=== PATIENT | female | born 1950 | race Caucasian/White ===

== ENCOUNTER → 2016-06-21 | Outpatient (CLI) | payer BC ==
--- NOTE | 2016-06-21 16:19 | REP ---
Clinical: Thyroid nodule. Technique: Real time pierre scale and color evaluation using linear high frequency and curved array transducer. Findings: Thyroid gland is mildly decreased in size demonstrating normal contour and parenchymal echogenicity. Right lobe measures 4.4 x 1.5 x 1.2 cm and includes and 8 mm solid nonspecific nodule. Left lobe measures 2.9 x 0.7 x 1.0 cm and includes 5 mm solid nonspecific nodule. Impression: Small bilateral nonspecific solid thyroid nodules.
--- NOTE | 2016-06-24 08:20 | DEXA ---
AP SPINE L1 - L4 1.047 -1.2 0.2 LT FEMUR TOTAL 0.942 -0.5 0.5 RT FEMUR TOTAL 0.950 -0.5 0.6 TOTAL BODY TOTAL OTHER DUAL FEMUR FRAX* ASSESSMENT Risk factors: None. 10 year probability of fracture Major osteoporotic fracture 8.7 % Hip fracture 0.9 % COMMENTS: There is low bone density of the spine and hips. The density of the left hip has decreased 1.9% since 02/21/2013. The density of the right hip has decreased 0.8% since 02/21/2013. The density of the spine has decreased 11.0% since the initial exam on 2001. The spine density has increased 2.8% since the most recent exam on 02/21/2013. FOLLOW-UP: Recommendation for the next bone density exam: 2 years. SILVANO
== END ==
LOC: M WHC 15:01
PROVIDERS: ATTEND Internal Medicine Endocrinology, Diabetes & Metabolism
DX: E04.1 Nontoxic single thyroid nodule (principal)

== ENCOUNTER → 2016-09-20 | Outpatient (CLI) | payer OTHER, BC | LOC: M WUC 18:47 | PROVIDERS: ATTEND Family Medicine | DX: Z11.1 Encounter for screening for respiratory tuberculosis (principal) ==

== ENCOUNTER → 2016-12-28 | Outpatient (CLI) | payer BC, OTHER ==
[~2016-12-28] MED LIST: METHACHOLINE KIT (J7674) INH
== END ==
LOC: M CARPUL 08:00
DX: R05 Cough (principal); Z53.9 Procedure and treatment not carried out, unspecified reason
CPT/HCPCS: J7674

== ENCOUNTER → 2017-01-28 | Outpatient (CLI) | payer BC, OTHER ==
[2017-01-28 21:17] LABS: INR 1.01
[2017-01-28 21:21] LABS: ALBUMIN 3.8 GM/DL (3.2-5.2); ALKALINE PHOSPHATASE 183 U/L (45-117); ALT/SGPT 37 U/L (12-78); AST/SGOT 25 U/L (7-37); BILIRUBIN,DIRECT < 0.1 MG/DL (0.0-0.2); BILIRUBIN,TOTAL 0.3 MG/DL (0.2-1.0); FERRITIN 185 NG/ML (8-252); GAMMA GLUTAMYLTRANSPEPTIDASE 26 U/L (5-55); PERCENT SATURATION 23.3 % (13.2-45.0); TOTAL IRON BINDING CAPACITY 335 UG/DL (250-450); TOTAL PROTEIN 7.6 GM/DL (6.4-8.2)
[2017-01-29 10:05] LABS: LABILE ALKPHOS 170 U/L; STABLE ALKPHOS 13 U/L
[2017-02-02 00:06] LABS: ALPHA 1 ANTITRYPSIN 129 mg/dL (90-200); TISSUE TRANSGLUTAMINASE IgG 6 U/mL (0-5)
[2017-02-02 10:12] LABS: HEPATITIS B SURFACE ANTIBODY NEGATIVE (POSITIVE)
[2017-02-02 11:16] LABS: ALBUMIN 4.36 GM/DL (3.29-5.55); ALBUMIN % 57.4 % (55.8-66.1); GAMMA GLOBULIN % 15.8 % (11.1-18.8)
== END ==
LOC: M WUC 17:20
PROVIDERS: ATTEND Internal Medicine Gastroenterology
DX: R10.12 Left upper quadrant pain (principal); K21.9 Gastro-esophageal reflux disease without esophagitis; R13.10 Dysphagia, unspecified; R94.5 Abnormal results of liver function studies

== ENCOUNTER → 2017-09-08 | Outpatient (CLI) | payer BC, MEDICARE | LOC: M RAD 08:10 | DX: R13.10 Dysphagia, unspecified (principal); K21.9 Gastro-esophageal reflux disease without esophagitis; R05 Cough; R94.5 Abnormal results of liver function studies; R19.7 Diarrhea, unspecified; K76.0 Fatty (change of) liver, not elsewhere classified; K76.89 Other specified diseases of liver | CPT/HCPCS: 76705 ==

== ENCOUNTER → 2017-09-27 | Outpatient (CLI) | payer BC, MEDICARE ==
[2017-09-30 08:06] LABS: QUANTIFERON GOLD TB Negative (Negative); TB Test (QFT) Antigen 0.13 IU/mL (.); TB Test (QFT) Antigen Minus Ni 0.08 IU/mL (.); TB Test (QFT) Mitogen 9.26 IU/mL (.); TB Test (QFT) Nil 0.05 IU/mL (.)
== END ==
LOC: M WUC 17:08
DX: Z11.1 Encounter for screening for respiratory tuberculosis (principal)
CPT/HCPCS: 36415

== ENCOUNTER → 2017-10-10 | Outpatient (REF) | payer MEDICARE, BC | LOC: M LAB REF 09:24 | DX: R13.0 Aphagia (principal); K21.9 Gastro-esophageal reflux disease without esophagitis; R05 Cough; R94.5 Abnormal results of liver function studies; R19.7 Diarrhea, unspecified | CPT/HCPCS: 83630 ==

== ENCOUNTER → 2017-10-23 | Outpatient (CLI) | payer BC, MEDICARE ==
[2017-10-23 18:12] LABS: BASO # 0.1 10^3/uL (0.0-0.2); EOS # 0.1 10^3/uL (0.0-0.50); HEMATOCRIT 42.5 % (36.0-47.0); HEMOGLOBIN 14.4 g/dl (12.0-15.5); IMMATURE GRANULOCYTE % 0.3 % (0-3.0); LYMPH # 2.2 10^3/uL (1.5-4.5); LYMPH % 36.9 % (24.0-44.0); MEAN CORPUSCULAR HEMOGLOBIN 30.2 pg (27.0-33.0); MEAN CORPUSCULAR HGB CONC 33.9 g/dl (32.0-36.5); MEAN CORPUSCULAR VOLUME 89.1 fl (80.0-96.0); MONO # 0.4 10^3/uL (0.0-0.8); MONO % 6.4 % (0.0-5.0); NEUTROPHILS # 3.3 10^3/uL (1.8-7.7); NEUTROPHILS % 54.4 % (36.0-66.0); PLATELET COUNT, AUTOMATED 285 10^3/uL (150-450); RED BLOOD COUNT 4.77 10^6/uL (4.00-5.40); RED CELL DISTRIBUTION WIDTH 11.9 % (11.5-14.5)
[2017-10-23 18:20] LABS: APPEARANCE, URINE TURBID (CLEAR); BACTERIA, URINE AUTO NEGATIVE (NEGATIVE); BILIRUBIN, URINE AUTO NEGATIVE (NEGATIVE); BLOOD, URINE BLOOD NEGATIVE (NEGATIVE); COLOR, URINE AMBER (YELLOW); GLUCOSE, URINE (UA) AUTO NEGATIVE (NEGATIVE); KETONE, URINE AUTO NEGATIVE (NEGATIVE); LEUKOCYTE ESTERASE, URINE AUTO NEGATIVE (NEGATIVE); MUCUS, URINE LARGE (NEGATIVE); NITRITE, URINE AUTO NEGATIVE (NEGATIVE); PROTEIN, URINE AUTO NEGATIVE (NEGATIVE); RBC, URINE AUTO 4 /HPF (0-3); SPECIFIC GRAVITY URINE AUTO 1.019 (1.002-1.035); SQUAMOUS EPITHELIAL CELL UR AU 9 /HPF (0-6); UROBILINOGEN, URINE AUTO 0.2 mg/dL (0.0-2.0); WBC, URINE AUTO 2 /HPF (0-3)
[2017-10-23 18:31] LABS: ALBUMIN 3.8 GM/DL (3.2-5.2); ALKALINE PHOSPHATASE 146 U/L (45-117); ALT/SGPT 47 U/L (12-78); ANION GAP 7 MEQ/L (8-16); AST/SGOT 30 U/L (7-37); BILIRUBIN,DIRECT < 0.1 MG/DL (0.0-0.2); BILIRUBIN,TOTAL 0.4 MG/DL (0.2-1.0); BLOOD UREA NITROGEN 13 MG/DL (7-18); CARBON DIOXIDE LEVEL 27 MEQ/L (21-32); CHLORIDE LEVEL 108 MEQ/L (98-107); CHOLESTEROL LEVEL 219 MG/DL (<200); CHOLESTEROL RISK RATIO 5.763 (<5); CREATININE FOR GFR 0.74 MG/DL (0.55-1.30); FREE T4 0.97 NG/DL (0.76-1.46); GLOMERULAR FILTRATION RATE > 60.0 (>45); GLUCOSE, FASTING 153 MG/DL (70-100); HDL CHOLESTEROL 38 MG/DL (>40); LDL CHOLESTEROL 134 MG/DL (<100); NON-HDL-C 181 MG/DL; POTASSIUM SERUM 4.3 MEQ/L (3.5-5.1); SODIUM LEVEL 142 MEQ/L (136-145); TOTAL PROTEIN 7.6 GM/DL (6.4-8.2); TRIGLYCERIDES LEVEL 233 MG/DL (<150)
[2017-10-23 18:48] LABS: MALB URINE SIEMENS 13.8 MG/L
[2017-10-23 18:49] LABS: MAU/CREAT RATIO 6.9 MCG/MG (0.0-30.0)
[2017-10-28 09:57] LABS: VITAMIN B6,PYRIDOXAL PHOSPHATE 11.3 ug/L (2.0-32.8)
== END ==
LOC: M WUC 08:21
DX: K76.89 Other specified diseases of liver (principal); R05 Cough; E11.65 Type 2 diabetes mellitus with hyperglycemia; E03.9 Hypothyroidism, unspecified; E78.5 Hyperlipidemia, unspecified; I10 Essential (primary) hypertension; M85.80 Other specified disorders of bone density and structure, unspecified site; K21.9 Gastro-esophageal reflux disease without esophagitis; R12 Heartburn; R94.5 Abnormal results of liver function studies; K76.0 Fatty (change of) liver, not elsewhere classified; R19.5 Other fecal abnormalities; E55.9 Vitamin D deficiency, unspecified
CPT/HCPCS: 83735

== ENCOUNTER → 2017-10-23 | Outpatient (CLI) | payer MEDICARE, BC ==
[2017-10-23 18:21] LABS: MAGNESIUM LEVEL 2.6 MG/DL (1.8-2.4)
== END ==
LOC: M WUC 08:25
DX: K76.89 Other specified diseases of liver (principal); R05 Cough; R13.10 Dysphagia, unspecified; K21.9 Gastro-esophageal reflux disease without esophagitis; R12 Heartburn; R94.5 Abnormal results of liver function studies; K76.0 Fatty (change of) liver, not elsewhere classified; R19.5 Other fecal abnormalities; E55.9 Vitamin D deficiency, unspecified

== ENCOUNTER → 2018-03-24 | Outpatient (CLI) | payer MEDICARE, BC ==
--- NOTE | 2018-03-24 08:11 | REP ---
Abdominal right upper quadrant ultrasound for elevated liver function tests: Comparison is 09/08/2017. There is a negative Carrasquillo's sign to transducer pressure. There is no cholelithiasis, gallbladder wall thickening or pericholecystic fluid. The common biliary duct measures 4.4 mm in diameter. The hepatic parenchyma is echogenic compatible with hepato steatosis with areas of fat sparing. There is a left lobe cyst measuring up to 7.6 mm, unchanged. The the there is a 9 mm echogenic nodule on image 13, likely in the left lobe, not present previously. I would recommend follow-up MRI or CT for further evaluation of this finding. The visualized areas of the pancreatic body and head are unremarkable. The tail is obscured by bowel gas. The right kidney measures 11.7 x 4.8 x 5.8 cm. There are no renal calculi. There is no hydronephrosis. There are no solid or cystic renal masses. There is no right upper quadrant ascites. Impression: Hepato steatosis with areas of fat sparing. 9 mm echogenic nodule in the liver. Recommend follow-up MRI or CT. 7.6 mm hepatic left lobe cyst, unchanged. Electronically Signed by Nicolas Gongora MD 03/24/2018 08:03 A
== END ==
LOC: M RAD 06:11
PROVIDERS: ATTEND Internal Medicine Gastroenterology
DX: K76.89 Other specified diseases of liver (principal)

== ENCOUNTER → 2018-04-12 | Outpatient (CLI) | payer MEDICARE, BC ==
[2018-04-12 07:17] LABS: BLOOD UREA NITROGEN 15 MG/DL (7-18); CALCIUM LEVEL 9.3 MG/DL (8.8-10.2); CARBON DIOXIDE LEVEL 30 MEQ/L (21-32); CHLORIDE LEVEL 105 MEQ/L (98-107); GLOMERULAR FILTRATION RATE > 60.0 (>45); GLUCOSE, FASTING 178 MG/DL (70-100); POTASSIUM SERUM 4.5 MEQ/L (3.5-5.1); SODIUM LEVEL 142 MEQ/L (136-145)
== END ==
LOC: M LAB 06:34
PROVIDERS: ATTEND Internal Medicine Gastroenterology
DX: R93.3 Abnormal findings on diagnostic imaging of other parts of digestive tract (principal); K76.89 Other specified diseases of liver

== ENCOUNTER 2018-05-26 15:48 | Emergency (ER) | payer BC, MEDICARE ==
[~2018-05-26] VITALS: Ht 160 cm; Wt 69.5 kg
[2018-05-26 16:53] LABS: HEMATOCRIT 41.5 % (36.0-47.0); HEMOGLOBIN 14.2 g/dl (12.0-15.5); MEAN CORPUSCULAR HEMOGLOBIN 29.9 pg (27.0-33.0); MEAN CORPUSCULAR HGB CONC 34.2 g/dl (32.0-36.5); MEAN CORPUSCULAR VOLUME 87.4 fl (80.0-96.0); PLATELET COUNT, AUTOMATED 294 10^3/uL (150-450); RED BLOOD COUNT 4.75 10^6/uL (4.00-5.40); WHITE BLOOD COUNT 15.8 10^3/uL (4.0-10.0)
[2018-05-26 16:55] LABS: BILIRUBIN, URINE MANUAL NEGATIVE (NEGATIVE); GLUCOSE, URINE (UA) MANUAL NEGATIVE (NEGATIVE); KETONE, URINE MANUAL NEGATIVE (NEGATIVE); UROBILINOGEN, URINE MANUAL NORMAL (NORMAL)
[2018-05-26] MEDS ORDERED: PHENAZOPYRIDINE 100 MG TAB PO ONE (17:00)
[2018-05-26 17:01] LABS: BACTERIA, URINE NONE SEEN; HYALINE CAST, URINE NONE SEEN /lpf (0-1); RBC, URINE TNTC /hpf (0-3); SQUAMOUS EPITHELIAL CELL URINE NONE SEEN /hpf (SMALL AMT)
[2018-05-26 17:06] LABS: BLOOD UREA NITROGEN 15 MG/DL (7-18); CALCIUM LEVEL 9.3 MG/DL (8.8-10.2); CARBON DIOXIDE LEVEL 28 MEQ/L (21-32); CHLORIDE LEVEL 103 MEQ/L (98-107); GLOMERULAR FILTRATION RATE > 60.0 (>45); GLUCOSE, FASTING 196 MG/DL (70-100); SODIUM LEVEL 139 MEQ/L (136-145)
[2018-05-26] MEDS ORDERED: LANS30CA93 (17:33)
[2018-05-26] MEDS ORDERED: JANU100T (17:33)
[2018-05-26] MEDS ORDERED: LEVO88TA3 (17:33)
[2018-05-26] MEDS ORDERED: ATOR80TA59 (17:33)
[2018-05-26] MEDS ORDERED: LATANOPROST (17:33)
[2018-05-26] MEDS ORDERED: SODI650T (17:33)
[2018-05-26] MEDS ORDERED: METF500T4 (17:33)
[2018-05-26] MEDS ORDERED: VITA500045 (17:33)
[2018-05-26] MEDS ORDERED: LISI-1046 (17:33)
[2018-05-26] MEDS ORDERED: PYRI1TAB5 PO (17:41)
[2018-05-26] MEDS ORDERED: CIPR-249 PO (17:41)
[2018-05-26 17:47] VITALS: BP 135/77
== END 2018-05-26 17:49 | disposition home or self-care (01) ==
LOC: M ED 15:48
DX: N30.91 Cystitis, unspecified with hematuria (principal); E11.9 Type 2 diabetes mellitus without complications; Z88.1 Allergy status to other antibiotic agents; Z88.2 Allergy status to sulfonamides; Z88.8 Allergy status to other drugs, medicaments and biological substances; Z87.891 Personal history of nicotine dependence

== ENCOUNTER → 2018-09-07 | Outpatient (CLI) | payer BC, MEDICARE ==
[~2018-09-07] MED LIST changes: +ATOR80TA59; +CIPR-249 PO; +ISOVUE-370 76% 100ML VIAL (Q9967) As Ordered ONE; +JANU100T; +LANS30CA93; +LATANOPROST; +LEVO88TA3; +LISI-1046; +METF500T4; -METHACHOLINE KIT (J7674) INH; +PYRI1TAB5 PO; +SODI650T; +VITA500045
--- NOTE | 2018-09-07 16:46 | REP ---
Clinical: Gross hematuria. Technique: Axial precontrast, contrast enhanced, and delayed images of the abdomen and pelvis using 100 ml Isovue 370 intravenous contrast material with coronal and sagittal re-formations as well as 3-D MIP urogram. Findings: Kidneys demonstrate bilateral lobulated contour without nephrolithiasis or renal mass lesion. Small left peripelvic cysts measure up to approximately 1.3 cm. Kidneys demonstrate symmetric parenchymal enhancement as well as symmetric normal excretion to the collecting system. The bilateral ureters and bladder appear normal. Liver, spleen, pancreas, gallbladder, and bilateral adrenal glands are normal. The enteric system is without obstruction or acute inflammatory process. Normal terminal ileum and appendix are identified in the right lower quadrant. Scattered colonic diverticula noted without acute diverticulitis. Pelvis demonstrates normal bladder and age-appropriate uterus/adnexa. No ascites. No free air. No adenopathy. Abdominal aorta and vasculature without aneurysm or dissection. Musculoskeletal structures demonstrate age-related changes. Lung bases are clear. Impression: 1. Few small left peripelvic simple renal cysts up to 1.3 cm. No further urinary tract pathology is appreciated. 2. Scattered colonic diverticula without acute diverticulitis. Electronically Signed by Cameron Howell MD 09/07/2018 04:37 P
== END ==
LOC: M RAD 15:04
PROVIDERS: ATTEND Urology
DX: R31.0 Gross hematuria (principal); N28.1 Cyst of kidney, acquired; K57.90 Diverticulosis of intestine, part unspecified, without perforation or abscess without bleeding
CPT/HCPCS: 74178; Q9967

== ENCOUNTER → 2018-09-18 | Outpatient (CLI) | payer BC, MEDICARE ==
[~2018-09-18] MED LIST changes: -ISOVUE-370 76% 100ML VIAL (Q9967) As Ordered ONE; +METF-791; -METF500T4
== END ==
LOC: M LAB 16:07
PROVIDERS: ATTEND Physician Assistant
DX: Z11.1 Encounter for screening for respiratory tuberculosis (principal)

== ENCOUNTER → 2018-11-20 | Outpatient (CLI) | payer MEDICARE, BC ==
[2018-11-20 12:08] LABS: ALT/SGPT 26 U/L (12-78); BILIRUBIN,DIRECT < 0.1 MG/DL (0.0-0.2); BILIRUBIN,TOTAL 0.3 MG/DL (0.2-1.0); BLOOD UREA NITROGEN 16 MG/DL (7-18); CALCIUM LEVEL 9.5 MG/DL (8.8-10.2); CARBON DIOXIDE LEVEL 30 MEQ/L (21-32); CHLORIDE LEVEL 109 MEQ/L (98-107); CHOLESTEROL LEVEL 238 MG/DL (<200); CHOLESTEROL RISK RATIO 6.263 (<5); CREATININE FOR GFR 0.89 MG/DL (0.55-1.30); FREE T4 0.99 NG/DL (0.76-1.46); GLOMERULAR FILTRATION RATE > 60.0 (>45); GLUCOSE, FASTING 150 MG/DL (70-100); HDL CHOLESTEROL 38 MG/DL (>40); LDL CHOLESTEROL 154 MG/DL (<100); NON-HDL-C 200 MG/DL; POTASSIUM SERUM 4.1 MEQ/L (3.5-5.1); SODIUM LEVEL 143 MEQ/L (136-145); TOTAL 25(OH) VITAMIN D 61.2 NG/ML (30.0-100.0); TOTAL PROTEIN 7.9 GM/DL (6.4-8.2); TRIGLYCERIDES LEVEL 229 MG/DL (<150)
== END ==
LOC: M LAB 10:05
PROVIDERS: ATTEND Internal Medicine Endocrinology, Diabetes & Metabolism
DX: E11.65 Type 2 diabetes mellitus with hyperglycemia (principal); M85.80 Other specified disorders of bone density and structure, unspecified site; E55.9 Vitamin D deficiency, unspecified; I10 Essential (primary) hypertension; E78.5 Hyperlipidemia, unspecified; E03.9 Hypothyroidism, unspecified; Z79.899 Other long term (current) drug therapy

== ENCOUNTER → 2019-08-25 | Outpatient (CLI) | payer MEDICARE, BC ==
[~2019-08-25] MED LIST changes: -LISI-1046; +LISI2.5T2; -METF-791; +METF-838
[2019-08-25 18:15] LABS: APPEARANCE, URINE HAZY (CLEAR); BACTERIA, URINE AUTO 1+ (NEGATIVE); BILIRUBIN, URINE AUTO NEGATIVE (NEGATIVE); BLOOD, URINE BLOOD NEGATIVE (NEGATIVE); COLOR, URINE YELLOW (YELLOW); GLUCOSE, URINE (UA) AUTO NEGATIVE (NEGATIVE); KETONE, URINE AUTO NEGATIVE (NEGATIVE); LEUKOCYTE ESTERASE, URINE AUTO NEGATIVE (NEGATIVE); MUCUS, URINE SMALL (NEGATIVE); NITRITE, URINE AUTO NEGATIVE (NEGATIVE); PROTEIN, URINE AUTO NEGATIVE (NEGATIVE); RBC, URINE AUTO 0 /HPF (0-3); SPECIFIC GRAVITY URINE AUTO 1.018 (1.002-1.035); SQUAMOUS EPITHELIAL CELL UR AU 5 /HPF (0-6); UROBILINOGEN, URINE AUTO 0.2 mg/dL (0.0-2.0); WBC, URINE AUTO 0 /HPF (0-3)
[2019-08-25 18:21] LABS: BASO # 0.1 10^3/uL (0.0-0.2); BASO % 1.1 % (0.0-1.0); EOS # 0.1 10^3/uL (0.0-0.5); EOS % 1.6 % (0.0-3.0); HEMATOCRIT 45.1 % (36.0-47.0); HEMOGLOBIN 14.9 g/dl (12.0-15.5); LYMPH # 1.7 10^3/uL (1.5-5.0); LYMPH % 31.4 % (24.0-44.0); MEAN CORPUSCULAR HEMOGLOBIN 29.4 pg (27.0-33.0); MEAN CORPUSCULAR VOLUME 89.1 fl (80.0-96.0); MONO # 0.3 10^3/uL (0.0-0.8); MONO % 6.1 % (0.0-5.0); NEUTROPHILS # 3.3 10^3/uL (1.5-8.5); NEUTROPHILS % 59.3 % (36.0-66.0); PLATELET COUNT, AUTOMATED 312 10^3/uL (150-450); RED BLOOD COUNT 5.06 10^6/uL (4.00-5.40); WHITE BLOOD COUNT 5.6 10^3/uL (4.0-10.0)
[2019-08-25 18:29] LABS: HEMOGLOBIN A1c 6.9 %
[2019-08-25 18:46] LABS: ALBUMIN 3.7 GM/DL (3.2-5.2); ALT/SGPT 32 U/L (12-78); BILIRUBIN,TOTAL 0.3 MG/DL (0.2-1.0); BLOOD UREA NITROGEN 11 MG/DL (7-18); CALCIUM LEVEL 9.1 MG/DL (8.8-10.2); CARBON DIOXIDE LEVEL 30 MEQ/L (21-32); CHLORIDE LEVEL 108 MEQ/L (98-107); CHOLESTEROL LEVEL 210 MG/DL (<200); CHOLESTEROL RISK RATIO 6.363 (<5); CREATININE FOR GFR 0.74 MG/DL (0.55-1.30); FREE T4 0.99 NG/DL (0.76-1.46); GLOMERULAR FILTRATION RATE > 60.0 (>45); GLUCOSE, FASTING 154 MG/DL (70-100); HDL CHOLESTEROL 33 MG/DL (>40); LDL CHOLESTEROL 140 MG/DL (<100); NON-HDL-C 177 MG/DL; POTASSIUM SERUM 4.7 MEQ/L (3.5-5.1); SODIUM LEVEL 143 MEQ/L (136-145); TOTAL PROTEIN 7.5 GM/DL (6.4-8.2); TRIGLYCERIDES LEVEL 186 MG/DL (<150)
[2019-08-25 18:49] LABS: MALB URINE SIEMENS 14.7 MG/L
[2019-08-27 10:32] LABS: TOTAL 25(OH) VITAMIN D 60.9 NG/ML (30.0-100.0); VITAMIN B12 LEVEL 338 PG/ML (247-911)
== END ==
LOC: M WUC 09:56
PROVIDERS: ATTEND Internal Medicine Endocrinology, Diabetes & Metabolism
DX: E03.9 Hypothyroidism, unspecified (principal); E11.65 Type 2 diabetes mellitus with hyperglycemia; E78.5 Hyperlipidemia, unspecified; I10 Essential (primary) hypertension; E55.9 Vitamin D deficiency, unspecified; M85.80 Other specified disorders of bone density and structure, unspecified site

== ENCOUNTER → 2019-09-16 | Outpatient (REF) | payer MEDICARE, BC | LOC: M WUC 11:04 | PROVIDERS: ATTEND Surgery | DX: Z11.1 Encounter for screening for respiratory tuberculosis (principal) ==